=== PATIENT | female | born 1985 | race Caucasian/White ===

== ENCOUNTER → 2016-06-30 | Outpatient (CLI) | payer BC ==
[2016-06-30 09:34] LABS: MEAN CORPUSCULAR HEMOGLOBIN 29.7 pg (27.0-33.0); MEAN CORPUSCULAR HGB CONC 33.9 g/dl (32.0-36.5); MEAN CORPUSCULAR VOLUME 87.7 fl (80.0-96.0); RED CELL DISTRIBUTION WIDTH 11.7 % (11.5-14.5); WHITE BLOOD COUNT 7.3 K/mm3 (4.0-10.0)
[2016-06-30 10:04] LABS: ALBUMIN 3.8 GM/DL (3.2-5.2); ALBUMIN/GLOBULIN RATIO 1.27 (1.00-1.93); ALKALINE PHOSPHATASE 36 U/L (45-117); ALT/SGPT 29 U/L (12-78); ANION GAP 8 MEQ/L (8-16); AST/SGOT 15 U/L (15-37); BILIRUBIN,TOTAL 0.7 MG/DL (0.2-1.0); BLOOD UREA NITROGEN 15 MG/DL (7-18); CARBON DIOXIDE LEVEL 28 MEQ/L (21-32); CHLORIDE LEVEL 105 MEQ/L (98-107); CHOLESTEROL LEVEL 166 MG/DL (<200); CREATININE FOR GFR 0.82 MG/DL (0.55-1.02); GLOMERULAR FILTRATION RATE > 60.0 (>60); GLUCOSE, FASTING 82 MG/DL (70-105); POTASSIUM SERUM 4.5 MEQ/L (3.5-5.1); SODIUM LEVEL 141 MEQ/L (136-145); TOTAL PROTEIN 6.8 GM/DL (6.4-8.2); TRIGLYCERIDES LEVEL 52 MG/DL (<150)
--- NOTE | 2016-06-30 10:40 | REP ---
MAXILLOFACIAL CT WITHOUT CONTRAST: HISTORY: Chronic sinus headache. Bilateral Shakila cells are present. Minimal mucosal thickening is present in the maxillary and right sphenoid sinuses. The remaining sinuses are clear. Mucosal thickening involves the right osteomeatal unit. The left osteomeatal unit is patent. The middle and inferior nasal turbinates are partially paradoxical. There is brayden bullosa of the right middle nasal turbinate. There is minimal deviation of the nasal septum to the right. The nasal septum abuts the right middle nasal turbinate. The cribriform plate, medial juárez of the orbits, and optic canals are intact. The carotid canals form a segment of the posterolateral juárez of the sphenoid sinus. IMPRESSION: Sinus mucosal thickening as described above. Signed by Mohinder Woods MD 06/30/2016 10:43 A
== END ==
LOC: M RAD 08:50
PROVIDERS: ATTEND Physician Assistant
DX: Z00.00 Encounter for general adult medical examination without abnormal findings (principal); J30.9 Allergic rhinitis, unspecified; R51 Headache

== ENCOUNTER 2018-03-31 14:11 | Emergency (ER) | payer BC ==
[2018-03-31 14:47] LABS: BASO % 0.1 % (0.0-1.0); HEMATOCRIT 38.3 % (36.0-47.0); HEMOGLOBIN 13.2 g/dl (12.0-15.5); IMMATURE GRANULOCYTE % 0.3 % (0-3.0); LYMPH # 0.5 10^3/uL (1.5-4.5); LYMPH % 4.7 % (24.0-44.0); MEAN CORPUSCULAR HEMOGLOBIN 29.8 pg (27.0-33.0); MEAN CORPUSCULAR HGB CONC 34.5 g/dl (32.0-36.5); MEAN CORPUSCULAR VOLUME 86.5 fl (80.0-96.0); MONO # 0.6 10^3/uL (0.0-0.8); MONO % 5.7 % (0.0-5.0); NEUTROPHILS # 8.8 10^3/uL (1.8-7.7); NEUTROPHILS % 89.2 % (36.0-66.0); PLATELET COUNT, AUTOMATED 170 10^3/uL (150-450); RED BLOOD COUNT 4.43 10^6/uL (4.00-5.40); RED CELL DISTRIBUTION WIDTH 11.9 % (11.5-14.5); WHITE BLOOD COUNT 9.9 10^3/uL (4.0-10.0)
[2018-03-31 14:57] LABS: INR 1.54; PROTHROMBIN TIME 18.8 SECONDS (12.1-14.4)
[2018-03-31 14:58] LABS: PARTIAL THROMBOPLASTIN TIME 27.5 SECONDS (25.4-37.6)
[2018-03-31 15:01] LABS: CONTROL LINE HCG INT CTR LINE PRESENT; HCG, SERUM QUALITATIVE NEGATIVE (NEGATIVE)
[2018-03-31 15:10] LABS: ALBUMIN 3.7 GM/DL (3.2-5.2); ALBUMIN/GLOBULIN RATIO 1.12 (1.00-1.93); ALKALINE PHOSPHATASE 33 U/L (45-117); ALT/SGPT 18 U/L (12-78); AMYLASE 30 U/L (25-115); ANION GAP 11 MEQ/L (8-16); AST/SGOT 10 U/L (7-37); BILIRUBIN,DIRECT 0.2 MG/DL (0.0-0.2); BILIRUBIN,TOTAL 0.6 MG/DL (0.2-1.0); BLOOD UREA NITROGEN 11 MG/DL (7-18); CALCIUM LEVEL 8.4 MG/DL (8.5-10.1); CARBON DIOXIDE LEVEL 18 MEQ/L (21-32); CHLORIDE LEVEL 112 MEQ/L (98-107); CREATININE FOR GFR 1.12 MG/DL (0.55-1.30); GLOMERULAR FILTRATION RATE > 60.0 (>60); GLUCOSE, FASTING 112 MG/DL (70-100); LIPASE 73 U/L (73-393); POTASSIUM SERUM 3.5 MEQ/L (3.5-5.1); SODIUM LEVEL 141 MEQ/L (136-145)
[2018-03-31 15:17] LABS: LACTIC ACID SEPSIS PROTOCOL 1.1 MMOL/L (0.4-2.0)
[2018-03-31] MEDS ORDERED: ISOVUE-370 76% 100ML VIAL (Q9967) As Ordered (15:17)
[2018-03-31] MEDS: MORPHINE 4 MG/ML 1ML VIAL/SYRINGE (J2270) IV (15:20)
[2018-03-31] MEDS: ACETAMINOPHEN 325 MG TAB PO (15:20)
[2018-03-31] MEDS: ONDANSETRON 4MG/2ML VIAL (J2405) IV (15:20)
[2018-03-31] MEDS: NS 1,910 ML in APPROPRIATE DILUENT 1 EA IV (15:21)
[2018-03-31 16:45] LABS: KETONE, URINE AUTO RFX NEGATIVE (NEGATIVE); LEUKOCYTE ESTERASE UR AUTO RFX NEGATIVE (NEGATIVE); NITRITE, URINE AUTO RFX NEGATIVE (NEGATIVE); RBC, URINE AUTO RFX 3 /HPF (0-3); SQUAM EPITHELIAL CELL UR AURFX 4 /HPF (0-6); WBC, URINE AUTO RFX 0 /HPF (0-3); YEAST LIKE CELL URINE AUTO RFX SMALL
[2018-03-31 16:56] LABS: SPECIFIC GRAVITY UR AUTO RFX >1.060 (1.002-1.035)
[2018-03-31] MEDS: NORCO, ANEXSIA 5/325MG TABLET (HYDROcodone/ACETAMINOPHEN) PO (17:24)
[2018-03-31] MEDS: metroNIDAZOLE (FLAGYL) 500 MG TAB PO (17:24)
[2018-03-31] MEDS: CIPROFLOXACIN 500 MG TAB PO (17:24)
[2018-03-31] MEDS: NORCO 5/325MG TABLET (BULK FOR ED) PO (17:38)
== END 2018-03-31 17:39 | disposition home or self-care (01) ==
LOC: M ED 14:11
DX: A09 Infectious gastroenteritis and colitis, unspecified (principal); E86.0 Dehydration; R50.9 Fever, unspecified; M54.5 Low back pain; R51 Headache; Z88.0 Allergy status to penicillin; Z91.040 Latex allergy status; Z79.899 Other long term (current) drug therapy
CPT/HCPCS: J2270

== ENCOUNTER → 2018-03-31 | Outpatient (REF) | payer BC ==
[2018-03-31 21:52] LABS: CHLAMYDIA DNA AMPLIFICATION NEGATIVE (NEGATIVE); GC DNA AMPLIFICATION NEGATIVE (NEGATIVE)
== END ==
LOC: M SFHCLERA 13:29
DX: R10.9 Unspecified abdominal pain (principal)
CPT/HCPCS: 87086

== ENCOUNTER → 2019-04-11 | Outpatient (CLI) | payer BC ==
[~2019-04-11] MED LIST: BUPR150T3; BUSP5TA; CIPR-249 PO; FLAG500T PO; GASTROGRAFIN SOLUTION 30ML (Q9963) As Ordered ONE; HYDR-3715 PO; ISOVUE-370 76% 100ML VIAL (Q9967) As Ordered ONE; RANI-280; SUMA100T2; TOPI25TA10; XULA1DIS; ZOFR4TAB14 PO
--- NOTE | 2019-04-11 15:10 | REP ---
CT ABDOMEN PELVIS WITH IV AND ORAL CONTRAST: HISTORY: Colitis. Comparison CT study March 31, 2018. CT CONTRAST DOSE: 100 mL of intravenous Isovue 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 The bowel gas pattern is normal. The lung bases are clear on axial CT images. The liver and the spleen are normal in size, homogeneous in texture. No adrenal lesion is seen. There is a tiny accessory splenule at the inferior aspect of the spleen. Pancreas is unremarkable. Gallbladder is normal in appearance. The kidneys enhance symmetrically and are morphologically intact. No retroperitoneal mass or adenopathy is seen. No uterine or ovarian abnormality is seen. Urinary bladder is unremarkable. Small and large bowel loops are unremarkable in the abdomen and pelvis. There is no CT evidence of enterocolitis. No abdominal wall defect is seen. A normal appendix is seen in place. IMPRESSION: Unremarkable CT study abdomen and pelvis with no acute intra-abdominal abnormality. Electronically Signed by Tom De Souza MD 04/11/2019 05:19 P
== END ==
LOC: M RAD 10:53
PROVIDERS: ATTEND Physician Assistant
DX: R10.9 Unspecified abdominal pain (principal); Z87.19 Personal history of other diseases of the digestive system
CPT/HCPCS: 74177; Q9963; Q9967

== ENCOUNTER → 2019-06-12 | Outpatient (CLI) | payer BC ==
[~2019-06-12] MED LIST changes: -GASTROGRAFIN SOLUTION 30ML (Q9963) As Ordered ONE; -ISOVUE-370 76% 100ML VIAL (Q9967) As Ordered ONE
[2019-06-12 16:39] LABS: H PYLORI QUALITATIVE IgG NEGATIVE (NEGATIVE)
== END ==
LOC: M LAB 15:38
PROVIDERS: ATTEND Internal Medicine Gastroenterology
DX: R19.7 Diarrhea, unspecified (principal)

== ENCOUNTER → 2019-06-15 | Outpatient (REF) | payer BC | LOC: M LAB REF 09:18 | PROVIDERS: ATTEND Internal Medicine Gastroenterology | DX: R19.7 Diarrhea, unspecified (principal) ==

== ENCOUNTER 2019-08-05 11:28 | Day surgery (SDC) | payer BC ==
[~2019-08-05] VITALS: Ht 162.6 cm; Wt 66.1 kg
[~2019-08-05 11:28] MED LIST changes: +AJOV225I SC; +BUPR300T92 PO; -BUSP5TA; +BUSP5TA PO; +FAMO40TA3 PO; +LIDOCAINE 2% INJ 100 MG/5 ML SDV (FOR ANES.) As Ordered ONE; +NS 1,000 ML IV ONE; +OMEP-221 PO; +VITA-144 PO; +propofoL 200 MG/20 ML VIAL As Ordered ONE
[2019-08-05] MEDS ORDERED: fentaNYL 100 MCG/2 ML INJECTION (J3010) As Ordered ONE (12:29)
--- NOTE | 2019-08-05 12:52 | ROOR ---
Patient Name: Cheryl Jackman Procedure Date: 08/05/2019 12:23 PM Date of : 1985 Age: 34 Room: [facility] Gender: Female Note Status: Finalized Procedure: Upper GI endoscopy Indications: Suspected non-erosive esophageal reflux, Esophageal reflux symptoms that persist despite appropriate therapy Providers: Marco Viera MD Referring MD: GERARDO Alvarenga Requesting Provider: Medicines: Monitored Anesthesia Care Complications: No immediate complications. Procedure: Pre-Anesthesia Assessment: - Prior to the procedure, a History and Physical was performed, and patient medications and allergies were reviewed. The patient is competent. The risks and benefits of the procedure and the sedation options and risks were discussed with the patient. All questions were answered and informed consent was obtained. Patient identification and proposed procedure were verified by the physician, the nurse and the anesthesiologist in the procedure room. Mental Status Examination: alert and oriented. Airway Examination: normal oropharyngeal airway and neck mobility. Respiratory Examination: clear to auscultation. CV Examination: normal. Prophylactic Antibiotics: The patient does not require prophylactic antibiotics. Prior Anticoagulants: The patient has taken no previous anticoagulant or antiplatelet agents. ASA Grade Assessment: II - A patient with mild systemic disease. After reviewing the risks and benefits, the patient was deemed in satisfactory condition to undergo the procedure. The anesthesia plan was to use monitored anesthesia care (MAC). Immediately prior to administration of medications, the patient was re-assessed for adequacy to receive sedatives. The heart rate, respiratory rate, oxygen saturations, blood pressure, adequacy of pulmonary ventilation, and response to care were monitored throughout the procedure. The physical status of the patient was re-assessed after the procedure. The Endoscope was introduced through the mouth, and advanced to the second part of duodenum. The upper GI endoscopy was accomplished without difficulty. The patient tolerated the procedure well. Findings: The Z-line was irregular and was found 40 cm from the incisors. Biopsies were taken with a cold forceps for histology. Verification of patient identification for the specimen was done by the physician and nurse using the patient's name, date and medical record number. Estimated blood loss was minimal. Scattered mild inflammation characterized by erythema and granularity was found in the gastric antrum. Biopsies were taken with a cold forceps for Helicobacter pylori testing. The examined duodenum was normal. The KUMAR capsule with delivery system was introduced through the mouth and advanced into the esophagus, such that the KUMAR pH capsule was positioned 34 cm from the incisors, which was 6 cm proximal to the GE junction. Suction was applied to the well of the KUMAR pH capsule to suck in the adjacent mucosa of the esophagus using the external vacuum pump set at a minimum vacuum pressure of 550 mmHg for 30 seconds. The KUMAR pH capsule was then deployed by depressing the plunger on top of the handle to advance the locking pin into the mucosa, thereby attaching the capsule to the esophagus. The plunger was then rotated a quarter turn clockwise to release the capsule from the delivery system. The delivery system was then withdrawn. Endoscopy was utilized for probe placement and diagnostic evaluation. The scope was reinserted to evaluate placement of the KUMAR capsule. Visualization showed the KUMAR capsule to be in an appropriate position. Impression: - Z-line irregular, 40 cm from the incisors. Biopsied. - Gastritis. Biopsied. - Normal examined duodenum. - The KUMAR pH capsule was positioned 34 cm from the incisors, which was 6 cm proximal to the GE junction. Recommendation: - Patient has a contact number available for emergencies. The signs and symptoms of potential delayed complications were discussed with the patient. Return to normal activities tomorrow. Written discharge instructions were provided to the patient. - Resume previous diet. - Continue present medications. - Follow an antireflux regimen. - Await pathology results. - Telephone GI clinic for pathology results in 2 weeks. - Return to primary care physician. Marco Viera MD Marco Viera MD 08/05/2019 12:52:07 PM Electronically signed by Marco Viera MD Number of Addenda: 0 Note Initiated On: 08/05/2019 12:23 PM Estimated Blood Loss: Estimated blood loss was minimal.
[2019-08-05 13:14] VITALS: BP 133/81
== END 2019-08-05 13:17 | disposition home or self-care (01) ==
LOC: M OPP 11:28
PROVIDERS: ATTEND Internal Medicine Gastroenterology
DX: K22.8 Other specified diseases of esophagus (principal); K29.70 Gastritis, unspecified, without bleeding; K21.9 Gastro-esophageal reflux disease without esophagitis; Z79.899 Other long term (current) drug therapy; Z88.0 Allergy status to penicillin; Z91.040 Latex allergy status; Z87.891 Personal history of nicotine dependence
CPT/HCPCS: 43239; 88305; 91035; J3010

== ENCOUNTER 2023-05-09 08:07 | Emergency (ER) | payer BC, OTHER ==
[~2023-05-09] VITALS: Ht 162.6 cm; Wt 71.4 kg
[~2023-05-09 08:07] MED LIST changes: +BUPR150T12; -BUPR150T3; -LIDOCAINE 2% INJ 100 MG/5 ML SDV (FOR ANES.) As Ordered ONE; -NS 1,000 ML IV ONE; -OMEP-221 PO; +OMEP40CA5 PO; -VITA-144 PO; +VITA100017 PO; -propofoL 200 MG/20 ML VIAL As Ordered ONE
[2023-05-09] MEDS ORDERED: ACETAMINOPHEN 325 MG TAB PO ONE (08:30)
[2023-05-09] MEDS ORDERED: MORPHINE 2 MG/ML 1ML VIAL IV ONE (11:30)
[2023-05-09] MEDS ORDERED: ONDANSETRON 4MG 2ML VIAL IV ONE (11:30)
[2023-05-09] MEDS ORDERED: LIDOCAINE 2% MDV 20ML VIAL SC ONE (11:30)
[2023-05-09] MEDS ORDERED: RIZA10TA2 (11:35)
[2023-05-09] MEDS ORDERED: SUMA4INJ6 (11:35)
[2023-05-09 11:55] LABS: HEMATOCRIT 39.9 % (36.0-47.0); HEMOGLOBIN 13.7 g/dl (12.0-15.5); MEAN CORPUSCULAR HGB CONC 34.3 g/dl (32.0-36.5); MEAN CORPUSCULAR VOLUME 87.3 fl (80.0-96.0); PLATELET COUNT, AUTOMATED 272 10^3/uL (150-450); RED BLOOD COUNT 4.57 10^6/uL (4.00-5.40); WHITE BLOOD COUNT 8.2 10^3/uL (4.0-10.0)
[2023-05-09] MEDS ORDERED: LIDOCAINE 1% SDV 5ML VIAL DILUENT ONE (12:15)
[2023-05-09] MEDS ORDERED: cefTRIAXone SOD 2GM VIAL IM ONE (12:15)
[2023-05-09] MEDS ORDERED: cefTRIAXone SOD 2 GM in D5W MINI-BAG PLUS 50 ML IV ONE (12:30)
[2023-05-09 12:44] LABS: BLOOD UREA NITROGEN 14 MG/DL (9-23); CALCIUM LEVEL 9.1 MG/DL (8.5-10.1); CARBON DIOXIDE LEVEL 19 MMOL/L (20-31); CHLORIDE LEVEL 110 MMOL/L (98-107); CREATININE FOR GFR 0.91 MG/DL (0.55-1.30); GLOMERULAR FILTRATION RATE > 60.0 (>60); GLUCOSE, FASTING 96 MG/DL (60-100); POTASSIUM SERUM 4.1 MMOL/L (3.5-5.1); SODIUM LEVEL 139 MMOL/L (136-145)
[2023-05-09] MEDS ORDERED: CEPH500C PO (13:32)
[2023-05-09 13:39] VITALS: BP 133/83; TEMP 98.3; O2SAT 100
== END 2023-05-09 13:44 | disposition home or self-care (01) ==
LOC: M ED 08:07
DX: S61.051A Open bite of right thumb without damage to nail, initial encounter (principal); S62.524B Nondisplaced fracture of distal phalanx of right thumb, initial encounter for open fracture; W54.0XXA Bitten by dog, initial encounter; Y92.9 Unspecified place or not applicable; Y93.9 Activity, unspecified; Z88.0 Allergy status to penicillin; Z91.040 Latex allergy status; Z79.899 Other long term (current) drug therapy
CPT/HCPCS: 73130; 80048; 85027; 96365; 96372; 96375; 99284; J0696; J2405

== ENCOUNTER → 2023-06-11 | Outpatient (CLI) | payer BC, OTHER ==
[~2023-06-11] MED LIST changes: +CEPH500C PO; +RIZA10TA2; +SUMA4INJ6
== END ==
LOC: M SOG 07:50
PROVIDERS: ATTEND Physician Assistant
DX: S62.524B Nondisplaced fracture of distal phalanx of right thumb, initial encounter for open fracture (principal)

== ENCOUNTER → 2023-07-09 | Outpatient (CLI) | payer BC, OTHER | LOC: M SOG 14:54 | PROVIDERS: ATTEND Physician Assistant | DX: M25.641 Stiffness of right hand, not elsewhere classified (principal) ==

== ENCOUNTER 2023-10-03 07:37 | Day surgery (SDC) | payer BC ==
[~2023-10-03] VITALS: Ht 162.6 cm; Wt 62.6 kg
[~2023-10-03 07:37] MED LIST changes: +BUPR-597 PO; -BUPR300T92 PO; +BUSP15TA47 PO; +ESOM40CA35 PO; +LIDOCAINE W/EPINEPHRINE 1% 20ML VIAL XX ONE; +SODIUM BICARBONATE 8.4% INJ 50MEQ 50ML VIAL XX ONE; -SUMA4INJ6; +SUMA4PEN SC; +TOPI100T9 PO
[2023-10-03] MEDS ORDERED: LIDOCAINE 1% MDV 20ML VIAL SC ONE (08:10)
[2023-10-03] MEDS: BACITRACIN OINTMENT 30GM TUBE As Ordered ONE (09:39)
[2023-10-03 09:55] VITALS: BP 124/65; TEMP 98.4; O2SAT 97
== END 2023-10-03 10:05 | disposition home or self-care (01) ==
LOC: M SDC 07:37
PROVIDERS: ATTEND Orthopaedic Surgery Hand Surgery
DX: L60.3 Nail dystrophy (principal); L60.8 Other nail disorders; S69.81XS Other specified injuries of right wrist, hand and finger(s), sequela; W54.0XXS Bitten by dog, sequela

== ENCOUNTER → 2025-04-26 | Outpatient (REF) | payer BC ==
[~2025-04-26] MED LIST changes: -BUPR-597 PO; +BUPR-766 PO; -LIDOCAINE W/EPINEPHRINE 1% 20ML VIAL XX ONE; -SODIUM BICARBONATE 8.4% INJ 50MEQ 50ML VIAL XX ONE; +TOPI-256; +TOPI-257 PO; -TOPI100T9 PO; -TOPI25TA10
== END ==
LOC: M LAB REF 11:36
DX: B34.9 Viral infection, unspecified (principal)